=== PATIENT | male | born 1970 | race Caucasian/White ===

== ENCOUNTER 2022-12-17 08:37 | Emergency (ER) | payer OTHER ==
[~2022-12-17] VITALS: Ht 190.5 cm; Wt 103.4 kg
[2022-12-17] MEDS ORDERED: predniSONE 20 mg tablet PO ONE (09:05)
[2022-12-17] MEDS ORDERED: PRED20TA PO (09:10)
--- NOTE | 2022-12-17 09:35 | NUR ---
PT PREPARING FOR DISCHARGE BP 164/107 AND REQ DAILY DOSE OF 5MG OF LISINOPRIL HE IS OUT OF TOWN AND WILL NOT BE BACK WITH HIS THINGS TO TAKE THE MED UNTIL [place]. RN WILL ASK DR CORNELL.
[2022-12-17 09:36] VITALS: BP_DIAS 107
[2022-12-17] MEDS ORDERED: lisinopril 10 MG tablet PO ONE (09:45)
[2022-12-17] MEDS ORDERED: lisinopril 5mg tablet PO ONE (09:45)
[2022-12-17 09:48] VITALS: BP_SYST 164
== END 2022-12-17 09:52 | disposition home or self-care (01) ==
LOC: ER 08:38
DX: R05.9 Cough, unspecified (principal); R06.02 Shortness of breath; J40 Bronchitis, not specified as acute or chronic; Z79.899 Other long term (current) drug therapy
CPT/HCPCS: 99283; J7512